=== PATIENT | female | born 1950 | race Caucasian/White ===

== ENCOUNTER → 2017-10-24 | Outpatient (CLI) | payer MEDICARE, OTHER ==
[~2017-10-24] MED LIST: ASPI-715 PO; ATOR40TA24 PO; AUG500 PO; CALC-649 PO; DIP25 PO; FLUT10SP NS; MULT1CAP59 PO; VITA-324 PO; Z PACK
--- NOTE | 2017-10-24 14:08 | RADIOLOGY IMAGING REPORT ---
[place]AC[place] [facility] [place]IENT NAME: Brittney Dominguez : 1950 MR: [id number] V: [id number] EXAM DATE: ORDERING PHYSICIAN: HUGH ALEGRE TECHNOLOGIST: Location: [facility] - [place] Patient: Brittney Dominguez : 1950 Visit/Account:[id number] Date of Sevice: 10/24/2017 DEXA Scan Clinical history: Ovarian failure. Comparison: DEXA scan from 05/22/2012. LUMBAR SPINE: The bone mineral density (BMD) measured from L1-L4 correlates with a Z-score of 2.4 and a T-score of 1.2 which is Normal as defined by the World Health Organization. The corresponding risk of fracture in the lumbar spine is Not increased compared with a young adult reference population. This value youssef s decreased by 1.1 % since the prior study. More than 5% change is considered significant. HIP: Bone mineral density (BMD) measured in the LEFT total hip region correlates with a Z-score 1.6 and a T-score of 0.6 which is normal as defined by the World Health Organization. The corresponding risk of fracture in the hip is Not i ncreased compared to a young adult reference population. This value has decrease by 5.7 % since the p rior study. More than 5% change is considered significant. T score left femoral neck -0.1 Bone mineral density (BMD) measured in the Femoral Neck region measures 1.020 g/cm?. IMPRESSION: 1. Lumbar spine: Normal. There has been 1.1% decrease in the bone mineral density since the previou s exam. 2. Left Total Hip: Normal. There has been 5.7% decrease in the bone mineral density since the previ ous exam. 3. Femoral Neck: Bone Mineral Density is 1.020 g/cm? The next DEXA scan of this patient should include the following sites: L1-L4 and the left hip. FRAX? WHO Fracture Risk Assessment Tool link: <http://www.shef.ac.uk/FRAX/tool.jsp?locationValue=9> PLEASE NOTE: 1) The World Health Organization defines low BMD as follows: T-score Normal > -1 Osteopenia < -1 and > -2.5 Osteoporosis < -2.5 without fractures Established osteoporosis < -2.5 with fractures 2) In general, you may wish to consider: Diagnosis Treatment Follow-up DEXA Normal BMD Prevention 2-3 years Osteopenia Prevention/therapy 1-2 years Osteoporosis Therapy Yearly 3) Fracture risk estimated from the T-score is more accurate for vertebral fractures (often spontane ous) than for hip fractures. Report Dictated By: Louise Esparza MD at 10/24/2017 1:47 PM Report E-Signed By: Louise Esparza MD at 10/24/2017 1:58 PM WSN:[email or web address]
--- NOTE | 2017-10-25 08:37 | RADIOLOGY IMAGING REPORT ---
FACILITY: [facility] - [place] PATIENT NAME: DAHIANA KEARNS : [id number] MR: [id number] V: [id number] EXAM DATE: ORDERING PHYSICIAN: HUGH ALEGRE TECHNOLOGIST: Rafia Garcia PROCEDURE:BILATERAL DIGITAL SCREENING MAMMOGRAM WITH CAD ASSISTED INTERPRETATION & 3D TOMOSYNTHESIS COMPARISON:Prior mammograms 09/13/16, 04/06/15, 05/22/12. INDICATIONS:SCREENING FINDINGS: Moderately dense fibroglandular tissue is seen throughout the breasts. The parenchymal pattern has remained stable allowing for difference in mammographic technique & patient positioning. There is no evidence of malignant appearing mass, malignant appearing calcifications or other secondary sign of malignancy in either breast. DIAGNOSTIC CATEGORY 1--NEGATIVE. RECOMMENDATIONS: ROUTINE MAMMOGRAM AND CLINICAL EVALUATION. IMPRESSION: BIRADS 1: Negative No significant abnormality is seen. Dictated by: Louise Esparza M.D. on 10/24/2017 at 17:44 Transcribed by: DEBRA on 10/25/2017 at 8:25 Approved by: Louise Esparza M.D. on 10/25/2017 at 8:36 [facility]
== END ==
LOC: MAMO 02:22
PROVIDERS: ATTEND Nurse Practitioner Psychiatric/Mental Health
DX: Z13.820 Encounter for screening for osteoporosis (principal); Z12.31 Encounter for screening mammogram for malignant neoplasm of breast; E28.39 Other primary ovarian failure
CPT/HCPCS: 77063; 77067; 77080

== ENCOUNTER → 2019-02-06 | Outpatient (CLI) | payer MEDICARE, OTHER ==
--- NOTE | 2019-02-06 15:31 | RADIOLOGY IMAGING REPORT ---
FACILITY: [facility] PATIENT NAME: DAHIANA KEARNS : [id number] MR: [id number] V: [id number] EXAM DATE: [id number] ORDERING PHYSICIAN: HUGH ALEGRE TECHNOLOGIST: Rafia Garcia PROCEDURE: BILATERAL DIGITAL SCREENING MAMMOGRAM WITH CAD ASSISTED INTERPRETATION & 3D TOMOSYNTHESIS REASON FOR STUDY: Screening. COMPARISON: 10/24/17, priors to 05/22/2012. VIEWS OBTAINED: Bilateral 2D & 3D full field CC & MLO projections. BREAST DENSITY: The breasts have scattered fibroglandular parenchymal densities. MAMMOGRAM FINDINGS: There are no mammographic findings concerning for malignancy. No significant interval change. IMPRESSION: BIRADS 1: Negative. DIAGNOSTIC CATEGORY 1--NEGATIVE. RECOMMENDATIONS: ROUTINE MAMMOGRAM IN 1YR AND CLINICAL EVALUATION. Dictated by: Kalin Fuller on 02/06/2019 at 14:55 Transcribed by: DEBRA on 02/06/2019 at 15:06 Approved by: Kalin Fuller on 02/06/2019 at 15:25 [facility]
== END ==
LOC: MAMO 03:50
PROVIDERS: ATTEND Nurse Practitioner Psychiatric/Mental Health
DX: Z12.31 Encounter for screening mammogram for malignant neoplasm of breast (principal)
CPT/HCPCS: 77063; 77067